=== PATIENT | female | born 1990 | race Asian ===

== ENCOUNTER 2024-05-24 12:56 | Inpatient (IN) | payer OTHER, SELFPAY ==
[2024-05-24] VITALS (13 sets, daily range): BP systolic 80–115; BP diastolic 45–73; PULSE 80–92; RESP 16–18; TEMP 36.2–37.2; O2SAT 99–100; BMI 27.4
[2024-05-24 14:00] LABS: Absolute Lymphocyte Count 1.93 X10^3/uL (0.83-4.51); Absolute Neutrophil Count 6.8 X10^3/uL (2.0-7.7); Basophil# 0.04 X10^3/uL; Basophil% 0.4 % (0-1); Eosinophil# 0.26 X10^3/uL; Eosinophils% 2.6 % (0-5); Hematocrit 36.8 % (37-47); Hemoglobin 12.4 g/dL (12.0-15.0); Lymphocyte # 1.93 X10^3/ul (0.83-4.51); Lymphocyte % 19.7 % (19-41); Mean Corp Hgb Conc 33.7 g/dL (32-36); Mean Corpuscular Volume 83.1 fL (81-99); Monocyte# 0.69 X10^3/uL; NRBC Flagged by Analyzer 0 % (0-5); Neutrophil # 6.75 X10^3/uL (2.7-7.7); Neutrophil % 68.8 % (47-70); Platelet Count 260 K/mm3 (150-450); RBC Distribution Width CV 18.5 % (11.6-14.6); RBC Distribution Width SD 55.6 fl (35.1-43.9); Red Blood Count 4.43 M/mm3 (4.2-5.4); White Blood Count 9.8 K/mm3 (4.4-11.0)
--- NOTE | 2024-05-24 14:24 | HP.PCM_ITS ---
History and Physical Date of Admission: 05/31/24 HPI: The patient is a 34 year old female presenting for pre-operative visit. She is scheduled for , for oligo and previous c/s on May 24, 2024. Procedure discussed along with risks, benefits and complications. Other alternatives discussed for management. Consent form signed? Yes. PAST MEDICAL HISTORY PAST MEDICAL HISTORY Diagnosis Date ? Cyst of thyroid PAST SURGICAL HISTORY PAST SURGICAL HISTORY Procedure Laterality Date ? SECTION HX CURRENT MEDICATIONS Current Outpatient Medications Medication Sig Dispense Refill ? pantoprazole DR (PROTONIX) 20 mg tablet Take 1 tablet by mouth once daily. 30 tablet 3 ? ferrous sulfate, dried (IRON, DRIED, ORAL) Take by mouth. ? calcium carbonate 600 mg-cholecalciferol 200 units (CALCIUM 600 + D,3,) 600 mg-5 mcg (200 unit) tab Take 1 tablet by mouth once daily. ? Magnesium 200 mg tab Take by mouth. With the iron ? PNV w/o Calcium-Iron Fum-FA 29 mg iron- 1 mg Take by mouth. No current facility-administered medications for this visit. ALLERGIES: Patient has no known allergies. PERSONAL HISTORY: SOCIAL HISTORY Social History Tobacco Use ? Smoking status: Never ? Smokeless tobacco: Never Vaping Use ? Vaping status: Never Used Substance Use Topics ? Alcohol use: Never ? Drug use: Never FAMILY HISTORY: FAMILY HISTORY FAMILY HISTORY Problem Relation Age of Onset ? Stroke Mother ? Hypertension Father ? Heart Father ? Diabetes Father ? Stroke Father ? No Known Problems Sister ? No Known Problems Brother ? No Known Problems Maternal Grandmother ? No Known Problems Maternal Grandfather ? Leukemia Paternal Grandmother ? Hypertension Paternal Grandfather ? Stroke Paternal Grandfather REVIEW OF SYMPTOMS: GENERAL: denies fevers or chills ENDOCRINOLOGY: has not been on steroids Cardiology : denies palpitations or chest pain Respiratory: denies SOB or cough Hematology: denies history of prolonged bleeding or easy bruising or VTE Allergy: Denies history of personal or family history of allergy to anesthesia PHYSICAL EXAMINATION: VITALS: Last menstrual period 08/15/2023. GENERAL: The patient is well nourished, well hydrated in no acute distress. , The patient is oriented to time, place, and person. NECK: Supple. No lynphadenopathy, normal thyroid, no thyromegaly. LUNGS: Clear to auscultation bilaterally. no wheezes, rhonchi or rales HEART: Regular rate and rhythm, Normal heart sounds, and No murmurs or gallops GENITALIA: Normal external genitalia, Urethral meatus normal, Bladder nontender, normal vagina and normal vaginal tone, normal cervix, normal uterus, size and consistency, normal adnexa without masses or tenderness, and perineum WNL IMPRESSION: Estimated Date of Delivery: 05/21/24 oligo previous c/s PLAN: The risks/benefits/alternatives and personal involved for the planned were reviewed with the patient. Her questions were answered to her satisfaction and she desires to proceed. Consent was signed. I reviewed with her postop instructions and expectations. I have reviewed and updated past medical and surgical history, medications and allergies Assessment & Plan Assessment/Plan (1) 40 weeks gestation of : (2) Previous delivery affecting : (3) High risk multigravida in third trimester: (4) Decreased movement affecting management of in third tri mester: QUALIFIERS: Fetus number: single or unspecified fetus Qualified Code(s): O36.8130 - Decreased movements, third trimester, not applicable or unspecified (5) Oligohydramnios antepartum: QUALIFIERS: Fetus number: single or unspecified fetus Qualified Code(s): O41.00X0 - Oligohydramnios, unspecified trimester, not applicable or unspecified PLAN: Plan AFV 3.5 cm No evidence of SROM in office today, neg fern and nitrazine.
[2024-05-24] MEDS: Acetaminophen 500 MG Tablet 1000 MG PO ×2 (15:01→21:02)
[2024-05-24 15:04] LABS: Syphilis Antibodies Non-reactive
[2024-05-24] MEDS: Lactated Ringers 1,000 ML 999 ML IV (15:05)
[2024-05-24] MEDS: Lactated Ringers 1,000 ML 150 ML IV (15:42)
[2024-05-24] MEDS: Cefazolin 2 GM in Syringe IV (16:28)
[2024-05-24] MEDS: Sodium Citrate/Citric Acid 30 ML UDC PO (16:28)
--- NOTE | 2024-05-24 16:29 | PCM.PRE.AN2 ---
ASA Classification* ASA Classification ASA Classification: 2 Assessment & Plan Anesthesia* Anesthesia Assessment Anesthesia Assessment: Discussed sedation and/or anesthesia options, risks, benefits, and alternatives with patient/parents/legal guardian/POA. Questions invited. The patient/parents/legal guardian/POA seems to understand and agrees to proceed with anesthesia plan. Reviewed the physical assessment, medical history, allergy history and patient home medications list prior to surgery/procedure/anesthetic and documented any changes. Performed airway and anesthesia risk assessments. Anesthesia Type Anesthesia Type: Spinal History Source History Obtained from:: Patient and Chart Anesthesia Focused Assessment* Temperature: 98.8 F Pulse Rate: 82 Blood Pressure: 115/73 Respiratory Rate: 16 Pulse Ox: 100 Airway Assessment Mouth opens: 2 cm Mallampati Score: II Teeth Condition: Intact Neck Range of motion (ROM): Full ROM Focused Labs Anesthesia Preop lab: CBC WBC 9.8 K/mm3 (4.4-11.0) 05/24/24 13:40 RBC 4.43 M/mm3 (4.2-5.4) 05/24/24 13:40 Hgb 12.4 g/dL (12.0-15.0) 05/24/24 13:40 Hct 36.8 % (37-47) L 05/24/24 13:40 Plt Count 260 K/mm3 (150-450) 05/24/24 13:40 CHEMISTRY COAG Pre-Assessment Diagnosis/Proposed Procedure Planned Operative Procedure(s): repeat c section Anesthesia History Anesthesia History - receptionist doctor's office: Anesthesia History - receptionist doctor's office Hx Hospitalization Any Problems With Anesthesia Cholinesterase deficiency You/Your Family Experience fever (hyperthermia) with Relationship Recent Exposure to Contagious Disease Does patient have nerve stimulator Patient instructed to have device shut off --Does patient have Pacemaker or ICD? When Was Last Pacemaker Check QUESTION #4 FULL TEXT: You/Your Family Experience fever (hyperthermia) with Anesthesia Last Oral Intake Last Oral intake: Last Oral Intake NPO since 23:00 05/24/24 14:05 Meds taken in AM with sips of water? Meds patient instructed to take am of surgery PONV PONV - receptionist doctor's office: PONV - receptionist doctor's office Female HX of Motion Sickness HX of N/V After Surgery Non-Smoker Duration of Surgery greater than 60 minutes Number of Risk Factors PONV Score Height & Weight Height & Weight: Anesthesia: Height & Weight Height 5 ft 5 in 05/24/24 13:25 Weight: 74.9 kg 05/24/24 13:25 Body Mass Index (BMI) 27.4 05/24/24 13:25 Respiratory Assessment Respiratory Assessment - receptionist doctor's office: Respiratory Tract Infection Hx - receptionist doctor's office Hx Respiratory Tract Infection STOP Sleep Apnea STOP Sleep Apnea - receptionist doctor's office: STOP Sleep Apnea - receptionist doctor's office Hx Hypertension Hx Sleep Apnea CPAP BIPAP Do you snore loudly (louder than talking or can be heard Do you often feel tired/ fatigued/ sleepy during daytime? Has anyone observed you stop breathing during sleep? STOP Results QUESTION #5 FULL TEXT : Do you snore loudly (louder than talking or can be heard through closed doors)? Tobacco Use History Tobacco Use History - receptionist doctor's office: Tobacco Use History - receptionist doctor's office Tobacco Use Smoking Status Never smoker 05/24/24 13:24 Hx Tobacco Use No 05/24/24 13:24 Years Smoking Packs Smoked per Day Smoking Cessation Date was within the last 15 years Hx Smoking Cessation Date Hx Smoking Cessation Counseling Hematologic Medial History Hematologic Hx - receptionist doctor's office: Hematologic Medical Hx - hand wood sander Hx of Blood Transfusion Hx of Transfusion in last 3 Months Date of Last Transfusion (if within last 3 months) Ever experience any problems with transfusion(s)? Specify any problems Hx of Preganancy in last 3 Months Nurse Filling Out Transfusion & Questions: Date: Time: Patient unable to answer at this time (ie. confused, unrespo /Reproduction History /Reproductive History - receptionist doctor's office: /Reproductive Hx- receptionist doctor's office Hx Now Gestational Age (in weeks): 40 05/24/24 13:24 EDC: 05/21/24 05/24/24 13:24 Hx 2 05/24/24 13:24 Hx Para 1 05/24/24 13:24 Hx Section SAB 0 05/24/24 13:24 Active Medications Active Medications: Current Medications Generic Name Dose Route Start Last Admin Trade Name Freq PRN Reason Stop Dose Admin Lactated Ringer's 1,000 mls @ 150 mls/hr 05/24/24 13:00 05/24/24 15:42 IV 05/24/24 19:39 150 mls/hr .[id number] GUS Administration Protocol Sodium Chloride 5 - 15 ml 05/24/24 12:55 0.9% Saline Lock 10 Ml Syringe IV PRN PRN SALINE FLUSH [facility] Medical History (Updated 05/24/24 @ 14:[address] Aisha Torres MD) Anemia affecting Thyroid disorder Oligohydramnios Home Medications ?Medication ?Instructions ?Recorded ?Last Taken ?Type calcium 250 mg tablet 250 mg PO DAILY 05/24/24 05/23/24 History ferrous sulfate 325 mg (65 mg 325 mg PO DAILY anemia 05/24/24 05/23/24 History iron) tablet (Feosol) folic acid 0.8 mg capsule 800 mcg PO DAILY 05/24/24 05/23/24 History magnesium 250 mg tablet 250 mg PO DAILY 05/24/24 05/23/24 History pantoprazole 20 mg tablet,delayed 20 mg PO DAILY acid reflux 05/24/24 04/26/24 History release (Protonix) Allergy/AdvReac Type Severity Reaction Status Date / Time No Known Drug Allergies Allergy Other Verified 05/24/24 13:40 Surgical History (Updated 05/24/24 @ 14:[address] Aisha Torres MD) Previous section Social History Smoking Status: Never smoker Review of Systems (Anesthesia) ROS Narrative System reviewed and no additional complaints, except as documented.
--- NOTE | 2024-05-24 17:30 | PLAC_PTH ---
PATIENT: ROBERTO SOLIMAN LOC: [facility] U#:[id number] AGE/SX: 34/F ROOM: WP007 RE05/24/[address]: Dr. Aisha Torres MD : 1990 BED: 1 DIS: 05/26/2024 SPEC #: [id number] RECD: 05/24/24 19:25 STATUS: JAYDEN REBeni #: [id number] DISHA: 05/24/24 17:[address]: Aisha Torres DEPT: SURGICAL PATHOLOGY RECD BY: Tyra Donohue ENTERED: 05/27/24 09:43 SP TYPE: PLACENTA OTHR DR: No Primary Care Phys Tissues: Placenta, NOS Procedures: Surgery Specimen Level V HEADER OPERATION: section PRE-OP DIAGNOSIS: Oligohydramnios TISSUE SUBMITTED: Placenta MICROSCOPIC DIAGNOSIS Placenta: Placental disc - third trimester placenta (632 gm). - Focal areas of intraparenchymal hemorrhage x2 (1 and 2cm in greatest dimensions). - Increased calcifications, maternal surface. Membranes - no pathologic diagnosis. Umbilical cord - three blood vessels and no pathologic diagnosis. SJ: 05/28/2024 MICROSCOPIC DESCRIPTION Slides are reviewed. GROSS DESCRIPTION SPECIMEN: PLACENTA / CLINICAL INFORMATION: A. Weight: 3.475 kg B. Gestational Age: 40 weeks C. Sex: Male PLACENTAL WEIGHT (POST FIXATION): 632 gm PLACENTAL DIMENSIONS: 18 x 18 x 4.5 cm PLACENTAL SHAPE: Usual ovoid PLACENTAL WEIGHT FOR GESTATIONAL AGE: Over 99th percentile MEMBRANES - Present A. Insertion: Marginal B. Site of rupture from edge: 6 cm from the margin of placental disc C. Color of membrane: Milton-mucoidy D. Abnormalities: None UMBILICAL CORD - Present A. Color: [place]-morton B. Insertion: Paracentral C. Length: 32 cm D. Diameter: 1.5 cm E. Number of vessels: Three F. Abnormalities: None PLACENTAL DISC - Present A. Color of surface: [place]-morton B. surface abnormalities: None C. Maternal cotyledons: Intact with minimal tears. Maternal surface shows increased calcification. D. Attached retro placental clot: No clot E. Cut surface: Dark red and spongy F. Lesions: Sections reveal two indurated areas measuring 1 and 2cm in greatest dimensions. G. Separate clot: Absent SECTIONS SUBMITTED: (6 cassettes) 1. Membrane roll 2. Cord, maternal end 3. Cord, end 4. Placental disc, and maternal surfaces 5. Placental disc, and maternal surfaces, larger lesion 6. Placental disc, and maternal surfaces, smaller lesion SJ.mr 05/27/2024 TC:5 CPT: 65048
--- NOTE | 2024-05-24 17:42 | OP.PCM_ITS ---
Assessment & Plan (1) Oligohydramnios antepartum: QUALIFIERS: Fetus number: single or unspecified fetus Qualified Code(s): O41.00X0 - Oligohydramnios, unspecified trimester, not applicable or unspecified PLAN: AFV 3.9 cm (2) Decreased movement affecting management of in third trimester: QUALIFIERS: Fetus number: single or unspecified fetus Qualified Code(s): O36.8130 - Decreased movements, third trimester, not applicable or unspecified (3) Previous delivery affecting : (4) High risk multigravida in third trimester: (5) 40 weeks gestation of : Maternal Data Information Final CESAR: 05/21/24 Gestational age: 40 07/26 Operative Report (OB) Cecarean Details Procedure Type: low transverse Date of Procedure: 05/24/24 Procedure Start Time: 17:01 Procedure Stop Time: 17:35 Time of Delivery: 17:07 Pre-Operative Diagnosis: Repeat Elective Post-Operative Diagnosis: Same as Pre-operative diagnosis Classification: Scheduled Type of Anesthesia: Spinal Special Medications: duramorph Antibiotic Given: Ancef 2 grams IV x1 Drain: Stevens to straight drain Estimated Blood Loss: 500 Fluids Replaced: 1000 Findings Description of surgery: The patient was taken to the operating room. She was prepped and draped in the dorsal supine position with a leftward tilt. A Pfannenstiel skin incision was made approximately 2 cm above the symphysis pubis and carried through to underlying layer fascia with the scalpel. The fascia was incised incised in the midline and extended laterally with the Vargas scissors. The fascia was dissected off the rectus muscles with blunt and sharp dissection. The rectus muscles were in the midline and the peritoneum was entered bluntly. The peritoneal incision was stretched and the bladder blade was placed. It was noted that there were some filmy adhesions of the bladder to the lower uterine segment and these were taken down with blunt and sharp dissection. The uterine incision was made in a low transverse fashion with the scalpel and extended superiorly and inferiorly with blunt dissection. The amniotic membranes were ruptured bluntly and clear amniotic fluid returned. The infant's head was brought to the incision in the flexed position and delivered without difficulty. The remainder of the infant was delivered with gentle traction and fundal pressure in the standard fashion. The mouth and nares were bulb suctioned. The cord was clamped and cut as the was stimulated. Cord clamping was delayed. The infant was handed off to the waiting nursing staff. The placenta was delivered with fundal massage and gentle traction in the standard fashion. There were dense adhesions of the right side of the uterus to the peritoneum and rectus muscle. These were clamped, transected and suture- ligated. I needed to do 3 separate pedicles and they were hemostatic. The uterus was exteriorized and cleared of all clots and debris. The cervix was dilated with a ring forcep. The uterine incision was closed with #1 Vicryl in a running locked fashion. The incision was examined and was found to be hemostatic. The uterus was placed back into the peritoneal cavity and hemostasis was again confirmed. The rectus muscles were examined and any bleeding was Bovie cauterized. The parietal peritoneum and rectus muscles were closed en bloc with an 0 Vicryl running suture. The rectus fascia was examined and any bleeding was Bovie cauterized and the rectus fascia was closed with 1 Vicryl suture in a running standard fashion. The subcutaneous tissue was examining and any bleed ing was Bovie cauterized. The subcutaneous tissue was reapproximated with 3-0 Vicryl suture. The skin was closed in a subcuticular fashion with 3-0 Monocryl suture. I performed the entire procedure with assistance. All sponge, lap, and needle counts were correct. The patient was taken to her room for recovery in a stable condition. Surgical findings: Normal uterus tubes and ovaries, approximately a 4 x 2 cm adhesion of the right uterus to the rectus muscles normal placenta with three-vessel cord. Small amount of clear amniotic fluid. Presentation: Vertex Amniotic Membrane Rupture Type: Artificial Amniotic Fluid Description: Clear Placental Delivery Description: Expressed Placenta Disposition: Sent to Pathology Specimen collected: Yes Description of specimen(s) removed: Placenta Cord Vessel Description: 3 Vessels Cord Entanglement: None A gender: Male (1 minute): 8 (5 minute): 9 Delayed Cord Clamping: Yes Salesperson [employer] analytics director: Yes Insurance Coder: Maryellen Falcon Tasks completed by cutting table operator first: Dissecting tissue and Retracting Additional clinical trials assistant?: No Complications Complications: No Admit VTE Documentation VTE Present on Admission: No VTE Mechan Device Prophylaxis: SCD's VTE Pharm Prophylaxis Ordered: No Reason Prophylaxis Not Ordered: Procedure Not Indicated
[2024-05-24] MEDS: Oxytocin 15 Units/NS 250ml 15 UNITS/250 ML IV.SOLN 83 UNITS IV (17:50)
[2024-05-24] MEDS: Ketorolac 30 MG/ML Syringe IV (18:31)
[2024-05-24 20:06] LABS: Pathology Specimen OB SEE PATHOLOGY REPORT
[2024-05-24] MEDS: Lactated Ringers 1,000 ML 100 ML IV (21:43)
[2024-05-25] VITALS (8 sets, daily range): BP systolic 91–109; BP diastolic 61–75; PULSE 79–85; RESP 16–17; TEMP 36.1–36.8; O2SAT 98–100
[2024-05-25] MEDS: Ketorolac 30 MG/ML Syringe IV ×3 (00:14→13:29)
[2024-05-25] MEDS: Acetaminophen 500 MG Tablet 1000 MG PO ×4 (04:02→22:46)
--- NOTE | 2024-05-25 04:21 | NURSING ---
Stevens catheter left in due to patient being very dizzy and lightheaded when attempting to get patient to walk to bathroom. Patient stood at the side of the bed well but got lightheaded when attempting to walk. RN assist 2x. A snack was given, patient encouraged to rest and will reassess.
[2024-05-25 06:33] LABS: Hematocrit 28.9 % (37-47); Hemoglobin 9.9 g/dL (12.0-15.0); Mean Corp Hgb Conc 34.3 g/dL (32-36); Mean Corpuscular Hgb 28.6 pg (27.0-32.0); Mean Corpuscular Volume 83.5 fL (81-99); Mean Platelet Vol. 10.8 fl (6.2-12.0); Platelet Count 207 K/mm3 (150-450); RBC Distribution Width CV 18.3 % (11.6-14.6); RBC Distribution Width SD 55.1 fl (35.1-43.9); Red Blood Count 3.46 M/mm3 (4.2-5.4); White Blood Count 13.9 K/mm3 (4.4-11.0)
--- NOTE | 2024-05-25 08:47 | PCM.PN.OB ---
Subjective Subjective pain well controlled, no CP/SOB. Objective Data Objective Data Vital Signs: Vital Signs Temp Pulse Resp BP Pulse Ox O2 Del Method 98.0 F 81 16 91/64 100 Room Air 05/25/24 06:15 05/25/24 06:15 05/25/24 06:15 05/25/24 06:15 05/25/24 06:15 05/25/24 06:15 Oxygen Delivery Method Room Air Weight: 74.9 kg Body Mass Index (BMI) 27.4 Intake & Output: Intake and Output for Last 24 Hours 05/23/24 05/24/24 05/25/24 23:59 23:59 23:59 Intake Total 2039.5 / 2039.5 870 / 870 Output Total 650 / 650 Balance 1389.5 / 1389.5 870 / 870 Lab / Micro Data 05/25/24 06:15 Labs: Laboratory Results - last 24 hr 05/24/24 13:40: WBC 9.8, RBC 4.43, Hgb 12.4, Hct 36.8 L, MCV 83.1, MCH 28.0, MCHC 33.7, RDW Std Deviation 55.6 H, RDW Coeff of Zeferino 18.5 H, Plt Count 260, MPV 11.0, Immature Gran % (Auto) 1.500 H, Neut % (Auto) 68.8, Lymph % (Auto) 19.7, [place] % (Auto) 7.0, Eos % (Auto) 2.6, Baso % (Auto) 0.4, Absolute Neuts (auto) 6.8, Absolute Lymphs (auto) 1.93, Nucleated RBC % 0, Syphilis Total Ab Non-reactive, Blood Type B POSITIVE, Antibody Screen NEGATIVE 05/25/24 06:15: WBC 13.9 H, RBC 3.46 L, Hgb 9.9 L, Hct 28.9 L, MCV 83.5, MCH 28.6, MCHC 34.3, RDW Std Deviation 55.1 H, RDW Coeff of Zeferino 18.3 H, Plt Count 207, MPV 10.8 Micro: Microbiology 05/24/24 15:45 Urine, Clean Catch Chlamydia/Neisseria (PCR) - Final Physical Exam Const alert General Appearance: cooperative GI GI Narrative: soft, moderate distention, fundus firm, appropriately tender. Abdominal bandage clean dry and intact Assessment & Plan (1) delivery delivered: PLAN: POD #1 doin gwell and doing well routine care likely d/c home tomorrow
[2024-05-25] MEDS: FLU VACC 2024-25(6MOS UP)/PF 45 MCG/0.5 ML SYRINGE IM (10:24)
[2024-05-25] MEDS: Senna/Docusate Sodium 1 Tablet PO (10:25)
[2024-05-25] MEDS: 0.9% Saline Lock 10 ML Syringe IV (13:29)
[2024-05-25] MEDS: Ibuprofen 600 MG Tablet PO (20:22)
[2024-05-26] MEDS: Ibuprofen 600 MG Tablet PO ×2 (01:55→09:21)
[2024-05-26 01:56] VITALS: BP 97/69; PULSE 71; RESP 14; TEMP 36.2; O2SAT 98
[2024-05-26] MEDS: Acetaminophen 500 MG Tablet 1000 MG PO ×2 (04:34→10:48)
[2024-05-26 09:14] VITALS: BP 104/72; PULSE 88; RESP 14; TEMP 37.3; O2SAT 99
[2024-05-26] MEDS: Senna/Docusate Sodium 1 Tablet PO (09:21)
--- NOTE | 2024-05-26 11:03 | PCM.PN.OB ---
Subjective Subjective Doing well per patient and nursing staff. Ambulating and taking PO without difficulty. Voiding and passing flatus. Pain controlled. , services for assistance. Denies headache, visual changes, chest pain, shortness of breath, leg pain or increased bleeding. Lochia normal. Objective Data Objective Data Vital Signs: Vital Signs Temp Pulse Resp BP Pulse Ox O2 Del Method 99.2 F H 88 14 104/72 99 Room Air 05/26/24 09:14 05/26/24 09:14 05/26/24 09:14 05/26/24 09:14 05/26/24 09:14 05/26/24 09:14 Oxygen Delivery Method Room Air Weight: 165 lb 2.02 oz Body Mass Index (BMI) 27.4 Intake & Output: Intake and Output for Last 24 Hours 05/24/24 05/25/24 05/26/24 23:59 23:59 23:59 Intake Total 2039.5 / 2039.5 870 / 870 Output Total 650 / 650 2300 / 2300 Balance 1389.5 / 1389.5 -1430 / -1430 Lab / Micro Data 05/25/24 06:15 Micro: Microbiology 05/24/24 15:45 Urine, Clean Catch Chlamydia/Neisseria (PCR) - Final ROS Constitutional Constitutional: Reports systems reviewed and no addt'l complaints, except as documented; Denies headache(s) Eyes Eyes: Denies acute decrease in peripheral vision, blurry vision or change in vision ENT HEENT: Reports systems reviewed and no addt'l complaints, except as documented Cardiovascular Cardiovascular: Denies chest pain or dizziness Respiratory/Chest Respiratory/Chest: Denies cough, dyspnea, dyspnea on exertion, shortness of breath at rest or shortness of breath with exertion Gastrointestinal Gastrointestinal: Denies abdominal pain, diarrhea, nausea or vomiting Genitourinary Genitourinary: Denies abdominal discomfort Musculoskeletal Musculoskeletal: Denies limited range of motion Integumentary Integumentary: Reports systems reviewed and no addt'l complaints, except as documented Neurologic Neurologic: Reports systems reviewed and no addt'l complaints, except as documented Psychiatric Psychiatric: Reports systems reviewed and no addt'l complaints, except as documented Endocrine Endocrinology: Reports systems reviewed and no addt'l complaints, except as documented Hematologic/Lymphatic Hematologic/Lymphatic: Reports systems reviewed and no addt'l complaints, except as documented Allergic/Immunologic Allergic/Immunologic: Reports systems reviewed and no addt'l complaints, except as documented Physical Exam Const alert and oriented x3 General Appearance: cooperative Orientation / Consciousness: awake, oriented to person, oriented to place and oriented to time Exam Limitations: no limitations HEENT normocephalic Head and Scalp: normal to inspection, normocephalic and atraumatic Face and Sinus: normal facial exam Eyes General Eye: normal appearance of both eyes Neck full ROM Chest Chest: symmetrical chest wall rise Resp normal respiratory effort and normal air movement Auscultation: clear to auscultation bilaterally Cardio regular rate, regular rhythm, S1 normal heart sound, S2 normal heart sound, no murmurs, no rub, no gallops and no clicks GI normal to inspection, nondistended, normoactive bowel sounds and non-tender GI Narrative: dressing dry and intact appearance of the vagina normal Bladder / Kidney Exam: no CVA tenderness Back/Spine normal ROM Extremity normal to inspection and full ROM Skin no rashes or lesions noted Neuro oriented x3, CN's II-XII intact bilaterally and moves all extremities Sensorium / Orientation: awake, alert and oriented to person Motor Exam: clonus absent Deep Tendon Reflexes: Rt Patellar (L4): 2+ and Lt Patellar (L4): 2+ Assessment & Plan (1) delivery delivered: (2) Acute blood loss anemia: PLAN: Plan 1) Routine care, POD #2 2) Vitals signs stable. Hemoglobin 9.9, will take PO iron at home. 3) Pain controlled 4) , services PRN 5) D/C home 6) Follow up in 2 weeks and 6 weeks
--- NOTE | 2024-05-26 11:06 | PCM.DC.SUM ---
Providers Date of Admission: 05/24/24 Primary Care Physician: Uma Primary [facility] Phys Reason For Visit: REPEAT Diagnosis Discharge Diagnosis (1) delivery delivered: Status: Acute Code(s): O82 - Encounter for delivery without indication (2) Acute blood loss anemia: Status: Acute Code(s): D62 - Acute posthemorrhagic anemia Plan 1) Routine care, POD #2 2) Vitals signs stable. Hemoglobin 9.9, will take PO iron at home. 3) Pain controlled 4) , services PRN 5) D/C home 6) Follow up in 2 weeks and 6 weeks Medications at Discharge Home Medications calcium 250 mg tablet 250 mg PO DAILY 05/24/24 ferrous sulfate 325 mg (65 mg iron) tablet (Feosol) 325 mg PO DAILY anemia 05/24/24 magnesium 250 mg tablet 250 mg PO DAILY 05/24/24 acetaminophen 500 mg tablet 1,000 mg (2 x 500 mg) PO Q6H #0 tabs 05/26/24 ibuprofen 600 mg tablet 600 mg PO Q6H #0 tabs 05/26/24 Hospital Course Summary of Care Provided Minutes Spent on Discharge: 15 Hospital Course: Presented on 05/24 for oligohydramnios and decreased movement for repeat LTCS. Postoperative course uncomplicated. Postoperative acute blood loss anemia with PO iron supplemenation upon discharge. D/C home postoperative day #2. Weight / BMI Weight Weight: 165 lb 2.02 oz Body Mass Index (BMI) 27.4 ABG / Lab / Microbiology Data 05/25/24 06:15 Microbiology: Microbiology 05/24/24 15:45 Urine, Clean Catch Chlamydia/Neisseria (PCR) - Final D/C Instructions Discharge Diet: No restrictions May resume sexual activity in: 6 weeks Weight Bearing Status: Full weight bearing Lifting Restricted to (Lbs): 20 Call your doctor if your incision/area has: Continuous Slow Oozing, Sudden Increased Bleeding, Increased Pain/ Swelling, Increased Redness, Foul Smelling Discharge and Swelling at the incision site Call your doctor if you observe: Fever of 101 or Higher, Inability to urinate, Inability to have a bowel movement, Using more than 1 pad per hour, Shortness of breath, Dizziness, Fainting spells, Chest pain, Increased palpitations (irregular heartbeat), Calf discomfort and Uncontrolled pain Suture Line Care: Avoid Pulling/Pushing Remove Dressing in: 1 week Cleanse incision/area with: Keep Dressing Clean & Dry DC O2, CPAP, BIPAP Needs Home O2 Discharge instructions: No Meaningful Use Info Meaningful Use Meaningful Use Diagnoses (Choose all that apply): None applicable Ischemic Stroke Statin Dosing Therapy Reference: STATIN DOSE THERAPY REFERENCE: * Patients > 75 years receive moderate or high dose statin therapy. * Patients 75 years or YOUNGER should receive HIGH intensity statin dose unless contraindicated. You will be required to document reason for non-treatment if statin daily dose does not meet guidelines. HIGH DOSE STATIN THERAPY DAILY Atorvastatin > than or = to 40 mg Rosuvastatin > than or = to 20 mg Amlodipine + Atorvastatin > than or = to 2.5/40 mg Ezetimibe + Simvastatin 10/80 mg Simvastatin 80mg Discharge Plan Admission Admit Date/Time: 05/24/24 12:56 Primary Reason for Your Visit: Repeat section Attending Provider: Aisha Torres Primary Care Provider: Care Physician,No Primary Discharge Orders/Prescriptions Prescriptions: New acetaminophen 500 mg Tablet 1,000 mg PO Q6H Qty: 0 0RF ibuprofen 600 mg Tablet 600 mg PO Q6H Qty: 0 0RF Continued ferrous sulfate [Feosol] 325 mg (65 mg iron) tablet 325 mg PO DAILY calcium 250 mg tablet 250 mg PO DAILY magnesium 250 mg tablet 250 mg PO DAILY Discontinued folic acid 0.8 mg capsule 800 mcg PO DAILY pantoprazole [Protonix] 20 mg tablet,delayed release (DR/EC) 20 mg PO DAILY Referrals / Follow Up: Care Physician,No Primary [Primary Care Provider] - Disposition Disposition (needs filled in before D/C Order can be placed): Home, Self Care
== END 2024-05-26 14:25 | disposition home or self-care (01) | DRG 787 ==
PROVIDERS: Admitting Provider Obstetrics & Gynecology; Referring Provider Obstetrics & Gynecology; Visit Provider Obstetrics & Gynecology
DX: O34.211 Maternal care for low transverse scar from previous cesarean delivery (principal); O41.03X0 Oligohydramnios, third trimester, not applicable or unspecified; D62 Acute posthemorrhagic anemia; O36.8130 Decreased fetal movements, third trimester, not applicable or unspecified; O90.81 Anemia of the puerperium; Z37.0 Single live birth; Z3A.40 40 weeks gestation of pregnancy; Z23 Encounter for immunization
CPT/HCPCS: 59025; 59050; 85025; 85027; 86780; 86850; 86900; 86901; 87491; 87591; 88307; 90656; 99221; A4216; G0378; J2405